=== PATIENT | female | born 1980 | race Caucasian/White ===

== ENCOUNTER 2022-07-19 08:41 | Inpatient (IN) ==
[2022-07-19] MEDS ORDERED: NovoLIN-R INSULIN PER UNIT CHARGE IV STA ×2 (09:09→11:17)
[2022-07-19] MEDS ORDERED: SODIUM CHLORIDE 0.9% 1000ML 2,000 ML IV SCH (09:15)
--- NOTE | 2022-07-19 09:49 | Emergency Department Note ---
Impression & Plan Hyperglycemia, JOSÉ LUIS (acute kidney injury), Acute dehydration, Acute hyponatremia ED Provider Note NAME: YAQUELIN CASTRO AGE: 42 SEX: F : 1980 ARRIVES VIA: Walk-In INFORMANT: [Patient] ED PROVIDER(S): [Roni Zuñiga MD] CHIEF COMPLAINT: Hyperglycemia HISTORY OF PRESENT ILLNESS: The patient is a 42-year-old female who states that in the last week, her blood sugars have been high. Today, they were 500. She has not officially been diagnosed with diabetes. She has noticed increased thirst and increased urination. She is up all night going to the bathroom. There has been no fever, no chills or cough or respiratory complaint. No vomiting or diarrhea, no urinary burning. She states that her family has a history of diabetes. REVIEW OF SYSTEMS: See HPI for pertinent positives and negatives. A total of ten systems were reviewed and were otherwise negative. PMHx/PSHx: See Below SOCIAL HISTORY: See Below. PHYSICAL EXAM: GENERAL: Patient is in no acute distress. HEENT: No acute trauma, normocephalic atraumatic, mucous membranes moist, no nasal congestion, no scleral icterus. NECK: No stridor, no adenopathy, no meningismus, trachea is midline. LUNGS: Clear to auscultation bilaterally, no wheeze, no rhonchi, breath sounds equal. HEART: Without murmurs gallops or rubs, regular rate and rhythm. ABDOMEN: Soft, nontender, bowel sounds positive, no peritonitis. EXTREMITIES: No cyanosis or edema, full range of motion of all the joints without pain or difficulty, no signs for acute trauma. NEUROLOGIC: Oriented x 3, no acute motor or sensory deficits, no focal weakness. SKIN: No rash, no jaundice, no diaphoresis. DIFFERENTIAL DIAGNOSIS: Infection, dehydration, UTI, COVID-19, metabolic abnormality, new onset diabete s, hypo/hyperglycemia, electrolyte disturbance, anemia, hypoxia, cardiac sources, as well as other pathologies. EMERGENCY DEPARTMENT COURSE/PROCEDURES: ECG: Indication was weakness. The ECG shows a normal sinus rhythm with a rate of 93. LVH is present. There is no ST elevation, no PVCs P the QTc is 450. Continuous Cardiac Monitoring: An order was placed for continuous cardiac monitoring. The monitor shows a rate of 117 with sinus tachycardia. MEDICAL DECISION MAKING: There is a mild leukocytosis, this could be consistent with infection or the stress of her presentation. Hemoglobin was high, likely consistent with dehydration. There was a normal platelet count. ABG did not show any true acidosis. Renal panel testing showed a sugar over 500. Her sodium was low. There was some acute kidney injury. No concerning liver enzyme elevation. TSH was elevated however, the T4 was normal. Of note, the patient does take thyroid medications. testing was negative. Urinalysis showed glucose and ketones, there was no true infection. COVID test returned negative. Chest x- ray did not show pneumonia. On exam, the patient was not toxic or febrile. The patient received 3 L of IV saline. She was given 10 units of IV insulin, a second dose of 8 units of IV insulin was administered. Her sugar is still in the 300s. The patient is dehydrated with some acute kidney injury. Her sodium is low. She has a high blood sugar that has been hard to control. She is technically a new onset diabetic. I do think the patient would benefit from a hospital stay. I spoke with the patient and case management, the on-call hospitalist was consulted. Past Med/Surg History Medical History Hypothyroid Social History Smoking Status: Current every day smoker Tobacco Type: E-cigarettes / Vaping Preferred Language: Kinyarwanda Feels Safe at Home: Yes Allergies Allergies Allergy/AdvReac Type Severity Reaction Status Date / Time No Known Allergies Allergy Unverified 07/19/22 08:52 Home Meds Home Medications Medication Instructions Recorded Confirmed buspirone 30 mg tablet 30 mg PO BID 07/19/22 07/19/22 levothyroxine 112 mcg tablet 112 mcg PO DAILY 07/19/22 07/19/22 spironolactone 100 mg tablet 100 mg PO BID 07/19/22 07/19/22 Results & Data (ED) Vital Signs Vital Signs - 24 hr 07/19/22 08:48 07/19/22 09:56 07/19/22 09:56 Temperature 36.5 C Temperature Source Temporal Artery Scan Pulse Rate 117 H Pulse Rate [Apical] 88 Pulse Rate from SpO2 Sensor Pulse Rhythm Regular Pulse Rhythm [Apical] Regular Pulse Strength Normal Respiratory Rate 18 18 Respiratory Effort / Characteristics Non-Labored Spontaneous Respiratory Depth Normal Normal Respiratory Pattern Regular Blood Pressure 152/90 H Blood Pressure [Left Arm] 159/94 H Blood Pressure Mean 110 Blood Pressure Mean [Left Arm] 115 Blood Pressure Position Sitting Blood Pressure Position [Left Arm] Pulse Oximetry 97 97 97 Oxygen Delivery Method Room Air Room Air Room Air Sepsis Recent Fever Within 48 Hours No Sepsis New/Unexplained Change in Mental Status No Sepsis Action Taken by Nursing No Action Required 07/19/22 10:53 07/19/22 09:05 07/19/22 09:10 Temperature Temperature Source Pulse Rate 103 H 94 H Pulse Rate [Apical] 87 Pulse Rate from SpO2 Sensor 100 H 94 H Pulse Rhythm Pulse Rhythm [Apical] Pulse Strength Respiratory Rate 18 18 13 Respiratory Effort / Characteristics Respiratory Depth Normal Respiratory Pattern Blood Pressure Blood Pressure [Left Arm] 126/104 H Blood Pressure Mean Blood Pressure Mean [Left Arm] 111 Blood Pressure Position Blood Pressure Position [Left Arm] Lying Pulse Oximetry 95 95 94 Oxygen Delivery Method Room Air Sepsis Recent Fever Within 48 Hours Sepsis New/Unexplained Change in Mental Status Sepsis Action Taken by Nursing 07/19/22 09:20 07/19/22 09:30 07/19/22 09:30 Temperature Temperature Source Pulse Rate 88 96 H Pulse Rate [Apical] Pulse Rate from SpO2 Sensor 91 H 95 H Pulse Rhythm Pulse Rhythm [Apical] Pulse Strength Respiratory Rate 16 16 Respiratory Effort / Characteristics Respiratory Depth Respiratory Pattern Blood Pressure 159/94 H Blood Pressure [Left Arm] Blood Pressure Mean 115 Blood Pressure Mean [Left Arm] Blood Pressure Position Blood Pressure Position [Left Arm] Pulse Oximetry 94 95 Oxygen Delivery Method Sepsis Recent Fever Within 48 Hours Sepsis New/Unexplained Change in Mental Status Sepsis Action Taken by Nursing 07/19/22 09:40 07/19/22 09:50 07/19/22 10:00 Temperature Temperature Source Pulse Rate 93 H 93 H Pulse Rate [Apical] Pulse Rate from SpO2 Sensor 92 H 89 Pulse Rhythm Pulse Rhythm [Apical] Pulse Strength Respiratory Rate 17 16 Respiratory Effort / Characteristics Respiratory Depth Respiratory Pattern Blood Pressure 153/99 H Blood Pressure [Left Arm] Blood Pressure Mean 117 Blood Pressure Mean [Left Arm] Blood Pressure Position Blood Pressure Position [Left Arm] Pulse Oximetry 95 95 Oxygen Delivery Method Sepsis Recent Fever Within 48 Hours Sepsis New/Unexplained Change in Mental Status Sepsis Action Taken by Nursing 07/19/22 10:00 07/19/22 10:10 07/19/22 10:20 Temperature Temperature Source Pulse Rate 82 84 89 Pulse Rate [Apical] Pulse Rate from SpO2 Sensor 84 83 88 Pulse Rhythm Pulse Rhythm [Apical] Pulse Strength Respiratory Rate 18 19 17 Respiratory Effort / Characteristics Respiratory Depth Respiratory Pattern Blood Pressure Blood Pressure [Left Arm] Blood Pressure Mean Blood Pressure Mean [Left Arm] Blood Pressure Position Blood Pressure Position [Left Arm] Pulse Oximetry 96 96 95 Oxygen Delivery Method Sepsis Recent Fever Within 48 Hours Sepsis New/Unexplained Change in Mental Status Sepsis Action Taken by Nursing 07/19/22 10:36 07/19/22 10:40 07/19/22 10:46 Temperature Temperature Source Pulse Rate 86 89 Pulse Rate [Apical] Pulse Rate from SpO2 Sensor 84 84 87 Pulse Rhythm Pulse Rhythm [Apical] Pulse Strength Respiratory Rate 15 15 Respiratory Effort / Characteristics Respiratory Depth Respiratory Pattern Blood Pressure Blood Pressure [Left Arm] Blood Pressure Mean Blood Pressure Mean [Left Arm] Blood Pressure Position Blood Pressure Position [Left Arm] Pulse Oximetry 95 94 94 Oxygen Delivery Method Sepsis Recent Fever Within 48 Hours Sepsis New/Unexplained Change in Mental Status Sepsis Action Taken by Nursing 07/19/22 10:46 07/19/22 10:50 07/19/22 11:00 Temperature Temperature Source Pulse Rate 85 Pulse Rate [Apical] Pulse Rate from SpO2 Sensor 84 Pulse Rhythm Pulse Rhythm [Apical] Pulse Strength Respiratory Rate 17 Respiratory Effort / Characteristics Respiratory Depth Respiratory Pattern Blood Pressure 126/104 H 143/92 H Blood Pressure [Left Arm] Blood Pressure Mean 111 109 Blood Pressure Mean [Left Arm] Blood Pressure Position Blood Pressure Position [Left Arm] Pulse Oximetry 94 Oxygen Delivery Method Sepsis Recent Fever Within 48 Hours Sepsis New/Unexplained Change in Mental Status Sepsis Action Taken by Nursing 07/19/22 11:00 07/19/22 11:10 07/19/22 11:20 Temperature Temperature Source Pulse Rate 83 95 H 91 H Pulse Rate [Apical] Pulse Rate from SpO2 Sensor 83 95 H Pulse Rhythm Pulse Rhythm [Apical] Pulse Strength Respiratory Rate 16 16 20 Respiratory Effort / Characteristics Respiratory Depth Respiratory Pattern Blood Pressure Blood Pressure [Left Arm] Blood Pressure Mean Blood Pressure Mean [Left Arm] Blood Pressure Position Blood Pressure Position [Left Arm] Pulse Oximetry 93 94 Oxygen Delivery Method Sepsis Recent Fever Within 48 Hours Sepsis New/Unexplained Change in Mental Status Sepsis Action Taken by Nursing 07/19/22 11:30 07/19/22 11:30 07/19/22 11:40 Temperature Temperature Source Pulse Rate 79 80 Pulse Rate [Apical] Pulse Rate from SpO2 Sensor Pulse Rhythm Pulse Rhythm [Apical] Pulse Strength Respiratory Rate 18 19 Respiratory Effort / Characteristics Respiratory Depth Respiratory Pattern Blood Pressure 163/93 H Blood Pressure [Left Arm] Blood Pressure Mean 116 Blood Pressure Mean [Left Arm] Blood Pressure Position Blood Pressure Position [Left Arm] Pulse Oximetry Oxygen Delivery Method Sepsis Recent Fever Within 48 Hours Sepsis New/Unexplained Change in Mental Status Sepsis Action Taken by Nursing 07/19/22 11:50 Temperature Temperature Source Pulse Rate 78 Pulse Rate [Apical] Pulse Rate from SpO2 Sensor Pulse Rhythm Pulse Rhythm [Apical] Pulse Strength Respiratory Rate 18 Respiratory Effort / Characteristics Respiratory Depth Respiratory Pattern Blood Pressure Blood Pressure [Left Arm] Blood Pressure Mean Blood Pressure Mean [Left Arm] Blood Pressure Position Blood Pressure Position [Left Arm] Pulse Oximetry 98 Oxygen Delivery Method Sepsis Recent Fever Within 48 Hours Sepsis New/Unexplained Change in Mental Status Sepsis Action Taken by [facility] Medications Current Medication List: was personally reviewed by me Laboratory Data Attestation: I reviewed the patient's lab results. Result diagrams: 07/19/22 09:02 07/19/22 14:58 Lab Results 07/19/22 07/19/22 07/19/22 Range/Units 08:59 09:00 09:02 WBC (4.8-10.8) K/ul RBC (3.93-5.22) M/uL Hgb (12.0-16.0) g/dl Hct (34.1-44.9) % MCV (80.0-100.0) fL MCH (25.0-34.0) pg MCHC (32.0-36.0) g/dL RDW Std Deviation (36.4-46.3) fL RDW Coeff of Daquan (11.5-14.5) % Plt Count (130-400) K/uL MPV (9.4-12.3) fL Immature Gran % (Auto) % Neut % (Auto) % Lymph % (Auto) % O'Brien % (Auto) % Eos % (Auto) % Baso % (Auto) % Neut # (Auto) (1.4-6.5) K/uL Lymph # (Auto) (1.2-3.4) K/uL O'Brien # (Auto) (0.24-0.82) K/uL Eos # (Auto) (0-0.50) K/uL Baso # (Auto) (0-0.2) K/uL Immature Gran # (Auto) (0.00-0.02) K/uL ABG pH (7.35-7.45) ABG pCO2 (35-46) mmHg ABG pO2 (80-95) mmHg ABG HCO3 (19-24) mmol/L ABG O2 Saturation (90-95) % ABG Base Excess (-9-1.8) mEq/L Alexis Test (Pos) Oxygen Given Sodium (136-145) mmol/L Potassium (3.5-5.1) mmol/L Chloride (98-107) mmol/L Carbon Dioxide (21-32) mmol/L Anion Gap (3-11) BUN (6-23) mg/dl Creatinine (0.6-1.2) mg/dl Est Cr Clr Drug Dosing ml/min Est GFR ( Amer) ml/min Est GFR (Non-Af Amer) ml/min BUN/Creatinine Ratio (10-20) Glucose (70-99(Fasting)) mg/dl POC Glucose 526 H* 526 H* (70-99) mg/dl Estimat Average Glucose 203 mg/dl Hemoglobin A1c 8.7 H (4.5-5.6) % Calcium (8.5-10.1) mg/dl Magnesium (1.7-2.4) mg/dl Total Bilirubin (0.2-1.0) mg/dl AST (13-39) U/L ALT (7-52) U/L Alkaline Phosphatase (34-104) U/L Total Protein (6.0-8.3) gm/dl Albumin (3.4-5.0) gm/dl Globulin (2.5-4.0) gm/dl Albumin/Globulin Ratio (0.9-2) TSH (0.300-4.500) uIu/ml Free T4 (0.61-1.60) ng/dl HCG, Qual (Negative) Urine Color Urine Appearance (Clear) Urine pH (4.5-7.5) Ur Specific [place] (1.000-1.030) Urine Protein (Negative) Urine Glucose (UA) (Negative) Urine Ketones (Negative) Urine Blood (Negative) Urine Nitrite (Negative) Urine Bilirubin (Negative) Urine Urobilinogen (Negative) Ur Leukocyte Esterase (Negative) Urine WBC (Auto) (0-5) /hpf Urine RBC (Auto) (0-4) /hpf U Hyaline Cast (Auto) (0-5) /lpf U Epithel Cells (Auto) (0-5) /lpf Urine Bacteria (Auto) (Negative) SARS-CoV-2, RNA, NAAT (NEGATIVE) 07/19/22 07/19/22 07/19/22 Range/Units 09:02 09:02 09:02 WBC 13.66 H (4.8-10.8) K/ul RBC 4.67 (3.93-5.22) M/uL Hgb 16.2 H (12.0-16.0) g/dl Hct 44.1 (34.1-44.9) % MCV 94.4 (80.0-100.0) fL MCH 34.7 H (25.0-34.0) pg MCHC 36.7 H (32.0-36.0) g/dL RDW Std Deviation 41.3 (36.4-46.3) fL RDW Coeff of Daquan 11.9 (11.5-14.5) % Plt Count 319 (130-400) K/uL MPV 10.6 (9.4-12.3) fL Immature Gran % (Auto) 0.8 % Neut % (Auto) 58.1 % Lymph % (Auto) 30.9 % O'Brien % (Auto) 6.9 % Eos % (Auto) 2.1 % Baso % (Auto) 1.2 % Neut # (Auto) 7.94 H (1.4-6.5) K/uL Lymph # (Auto) 4.22 H (1.2-3.4) K/uL O'Brien # (Auto) 0.94 H (0.24-0.82) K/uL Eos # (Auto) 0.29 (0-0.50) K/uL Baso # (Auto) 0.16 (0-0.2) K/uL Immature Gran # (Auto) 0.11 H (0.00-0.02) K/uL ABG pH (7.35-7.45) ABG pCO2 (35-46) mmHg ABG pO2 (80-95) mmHg ABG HCO3 (19-24) mmol/L ABG O2 Saturation (90-95) % ABG Base Excess (-9-1.8) mEq/L Alexis Test (Pos) Oxygen Given Sodium 129 L (136-145) mmol/L Potassium 4.4 (3.5-5.1) mmol/L Chloride 97 L (98-107) mmol/L Carbon Dioxide 18 L (21-32) mmol/L Anion Gap 14 H (3-11) BUN 31 H (6-23) mg/dl Creatinine 1.33 H (0.6-1.2) mg/dl Est Cr Clr Drug Dosing 73.6 ml/min Est GFR ( Amer) 57.0 ml/min Est GFR (Non-Af Amer) 49.2 ml/min BUN/Creatinine Ratio 23.3 H (10-20) Glucose 555 H* (70-99(Fasting)) mg/dl POC Glucose (70-99) mg/dl Estimat Average Glucose mg/dl Hemoglobin A1c (4.5-5.6) % Calcium 9.9 (8.5-10.1) mg/dl Magnesium 2.3 (1.7-2.4) mg/dl Total Bilirubin 0.0 L (0.2-1.0) mg/dl AST 39 (13-39) U/L ALT 53 H (7-52) U/L Alkaline Phosphatase 91 (34-104) U/L Total Protein 8.4 H (6.0-8.3) gm/dl Albumin 4.8 (3.4-5.0) gm/dl Globulin 3.6 (2.5-4.0) gm/dl Albumin/Globulin Ratio 1.3 (0.9-2) TSH (0.300-4.500) uIu/ml Free T4 (0.61-1.60) ng/dl HCG, Qual Negative (Negative) Urine Color Urine Appearance (Clear) Urine pH (4.5-7.5) Ur Specific [place] (1.000-1.030) Urine Protein (Negative) Urine Glucose (UA) (Negative) Urine Ketones (Negative) Urine Blood (Negative) Urine Nitrite (Negative) Urine Bilirubin (Negative) Urine Urobilinogen (Negative) Ur Leukocyte Esterase (Negative) Urine WBC (Auto) (0-5) /hpf Urine RBC (Auto) (0-4) /hpf U Hyaline Cast (Auto) (0-5) /lpf U Epithel Cells (Auto) (0-5) /lpf Urine Bacteria (Auto) (Negative) SARS-CoV-2, RNA, NAAT (NEGATIVE) 07/19/22 07/19/22 07/19/22 Range/Units 09:02 09:34 09:37 WBC (4.8-10.8) K/ul RBC (3.93-5.22) M/uL Hgb (12.0-16.0) g/dl Hct (34.1-44.9) % MCV (80.0-100.0) fL MCH (25.0-34.0) pg MCHC (32.0-36.0) g/dL RDW Std Deviation (36.4-46.3) fL RDW Coeff of Daquan (11.5-14.5) % Plt Count (130-400) K/uL MPV (9.4-12.3) fL Immature Gran % (Auto) % Neut % (Auto) % Lymph % (Auto) % O'Brien % (Auto) % Eos % (Auto) % Baso % (Auto) % Neut # (Auto) (1.4-6.5) K/uL Lymph # (Auto) (1.2-3.4) K/uL O'Brien # (Auto) (0.24-0.82) K/uL Eos # (Auto) (0-0.50) K/uL Baso # (Auto) (0-0.2) K/uL Immature Gran # (Auto) (0.00-0.02) K/uL ABG pH 7.37 (7.35-7.45) ABG pCO2 32 L (35-46) mmHg ABG pO2 98 H (80-95) mmHg ABG HCO3 19 (19-24) mmol/L ABG O2 Saturation 98.1 H (90-95) % ABG Base Excess -5.8 (-9-1.8) mEq/L Alexis Test Pos (Pos) Oxygen Given Room Air Sodium (136-145) mmol/L Potassium (3.5-5.1) mmol/L Chloride (98-107) mmol/L Carbon Dioxide (21-32) mmol/L Anion Gap (3-11) BUN (6-23) mg/dl Creatinine (0.6-1.2) mg/dl Est Cr Clr Drug Dosing ml/min Est GFR ( Amer) ml/min Est GFR (Non-Af Amer) ml/min BUN/Creatinine Ratio (10-20) Glucose (70-99(Fasting)) mg/dl POC Glucose (70-99) mg/dl Estimat Average Glucose mg/dl Hemoglobin A1c (4.5-5.6) % Calcium (8.5-10.1) mg/dl Magnesium (1.7-2.4) mg/dl Total Bilirubin (0.2-1.0) mg/dl AST (13-39) U/L ALT (7-52) U/L Alkaline Phosphatase (34-104) U/L Total Protein (6.0-8.3) gm/dl Albumin (3.4-5.0) gm/dl Globulin (2.5-4.0) gm/dl Albumin/Globulin Ratio (0.9-2) TSH 16.050 H (0.300-4.500) uIu/ml Free T4 0.77 (0.61-1.60) ng/dl HCG, Qual (Negative) Urine Color Urine Appearance (Clear) Urine pH (4.5-7.5) Ur Specific [place] (1.000-1.030) Urine Protein (Negative) Urine Glucose (UA) (Negative) Urine Ketones (Negative) Urine Blood (Negative) Urine Nitrite (Negative) Urine Bilirubin (Negative) Urine Urobilinogen (Negative) Ur Leukocyte Esterase (Negative) Urine WBC (Auto) (0-5) /hpf Urine RBC (Auto) (0-4) /hpf U Hyaline Cast (Auto) (0-5) /lpf U Epithel Cells (Auto) (0-5) /lpf Urine Bacteria (Auto) (Negative) SARS-CoV-2, RNA, NAAT NEGATIVE (NEGATIVE) 07/19/22 07/19/22 07/19/22 Range/Units 10:26 10:39 11:15 WBC (4.8-10.8) K/ul RBC (3.93-5.22) M/uL Hgb (12.0-16.0) g/dl Hct (34.1-44.9) % MCV (80.0-100.0) fL MCH (25.0-34.0) pg MCHC (32.0-36.0) g/dL RDW Std Deviation (36.4-46.3) fL RDW Coeff of Daquan (11.5-14.5) % Plt Count (130-400) K/uL MPV (9.4-12.3) fL Immature Gran % (Auto) % Neut % (Auto) % Lymph % (Auto) % O'Brien % (Auto) % Eos % (Auto) % Baso % (Auto) % Neut # (Auto) (1.4-6.5) K/uL Lymph # (Auto) (1.2-3.4) K/uL O'Brien # (Auto) (0.24-0.82) K/uL Eos # (Auto) (0-0.50) K/uL Baso # (Auto) (0-0.2) K/uL Immature Gran # (Auto) (0.00-0.02) K/uL ABG pH (7.35-7.45) ABG pCO2 (35-46) mmHg ABG pO2 (80-95) mmHg ABG HCO3 (19-24) mmol/L ABG O2 Saturation (90-95) % ABG Base Excess (-9-1.8) mEq/L Alexis Test (Pos) Oxygen Given Sodium (136-145) mmol/L Potassium (3.5-5.1) mmol/L Chloride (98-107) mmol/L Carbon Dioxide (21-32) mmol/L Anion Gap (3-11) BUN (6-23) mg/dl Creatinine (0.6-1.2) mg/dl Est Cr Clr Drug Dosing ml/min Est GFR ( Amer) ml/min Est GFR (Non-Af Amer) ml/min BUN/Creatinine Ratio (10-20) Glucose (70-99(Fasting)) mg/dl POC Glucose 419 H* 388 H* (70-99) mg/dl Estimat Average Glucose mg/dl Hemoglobin A1c (4.5-5.6) % Calcium (8.5-10.1) mg/dl Magnesium (1.7-2.4) mg/dl Total Bilirubin (0.2-1.0) mg/dl AST (13-39) U/L ALT (7-52) U/L Alkaline Phosphatase (34-104) U/L Total Protein (6.0-8.3) gm/dl Albumin (3.4-5.0) gm/dl Globulin (2.5-4.0) gm/dl Albumin/Globulin Ratio (0.9-2) TSH (0.300-4.500) uIu/ml Free T4 (0.61-1.60) ng/dl HCG, Qual (Negative) Urine Color Yellow Urine Appearance Clear (Clear) Urine pH 5.0 (4.5-7.5) Ur Specific [place] 1.044 H (1.000-1.030) Urine Protein Negative (Negative) Urine Glucose (UA) 3+ H (Negative) Urine Ketones 2+ H (Negative) Urine Blood Trace H (Negative) Urine Nitrite Negative (Negative) Urine Bilirubin Negative (Negative) Urine Urobilinogen Negative (Negative) Ur Leukocyte Esterase Negative (Negative) Urine WBC (Auto) 10-30 H (0-5) /hpf Urine RBC (Auto) 0-4 (0-4) /hpf U Hyaline Cast (Auto) 1-5 (0-5) /lpf U Epithel Cells (Auto) >30 H (0-5) /lpf Urine Bacteria (Auto) Negative (Negative) SARS-CoV-2, RNA, NAAT (NEGATIVE) Administered Medications Insulin Human Regular 250 (units/ Sodium Chloride) 250 mls @ 8 mls/hr IV .Q24H [facility]; Protocol Stop: 08/18/22 11:59 Last Titration: 07/19/22 16:05 Dose: 8 units/hr, 8 mls/hr Documented By: [id number] Co-signed By: ASHLEY Titration: 07/19/22 15:02 Dose: 10 units/hr, 10 mls/hr Documented By: TIERA Co-signed By: HS Admin: 07/19/22 13:11 Dose: 10 units/hr, 10 mls/hr Documented By: TIERA Co-signed By: JUAN MANUEL Insulin Aspart (Insulin Aspart Per Unit) 0 units SC ACHS [facility] Stop: 08/18/22 12:29 Last Admin: 07/19/22 13:54 Dose: Not Given Documented By: TIERA Co-signed By: OAM Discontinued Medications Sodium Chloride (Nss 1000ml) 2,000 mls @ 999 mls/hr IV .Q2H1M [facility] Stop: 07/19/22 11:15 Last Infusion: 07/19/22 11:19 Dose: 0 mls/hr Documented By: Admin: 07/19/22 09:21 Dose: 999 mls/hr Documented By: ELEAZAR Sodium Chloride (Nss 1000ml) 1,000 mls @ 999 mls/hr IV .Q1H1M [facility] Stop: 07/19/22 12:17 Last Infusion: 07/19/22 12:33 Dose: 0 mls/hr Documented By: Admin: 07/19/22 11:32 Dose: 999 mls/hr Documented By: TIERA Potassium Chloride 40 meq/ (Sodium Chloride) 1,020 mls @ 125 mls/hr IV .Q8H10M [facility] Stop: 08/18/22 12:14 Last Admin: 07/19/22 13:12 Dose: 125 mls/hr Documented By: TIERA Insulin Human Regular (Novolin-R Insulin Per Unit Charge) 10 units IV NOW STA Stop: 07/19/22 09:10 Last Admin: 07/19/22 09:21 Dose: 10 units Documented By: ELEAZAR Co-signed By: ANTHONY Insulin Human Regular (Novolin-R Insulin Per Unit Charge) 8 units IV NOW STA Stop: 07/19/22 11:18 Last Admin: 07/19/22 11:32 Dose: 8 units Documented By: TIERA Co-signed By: JUAN MANUEL Imaging Data Radiologist's Impression: Chest X-Ray 07/19/22 09:10 SINGLE VIEW CHEST CLINICAL HISTORY: Generalized weakness. FINDINGS: An AP, portable, upright chest radiograph is obtained. No prior studies are available for comparison at the time of dictation. The cardiomediastinal silhouette is unremarkable. There is mild elevation of the right hemidiaphragm. The lungs and pleural spaces are clear. No pneumothorax is seen. The bony thorax is grossly intact. IMPRESSION: No active disease in the chest. ACT 112: Negative or not required by law. Electronically signed by: Roni Serna M.D. 07/19/2022 10:14 AM Discharge Plan Visit Data Chief Complaint: Hyperglycemia Stated Complaint: HIGH SUGAR, DRY MOUTH ED Provider: Roni Zuñiga Discharge Problem: Hyperglycemia, JOSÉ LUIS (acute kidney injury), Acute dehydration, Acute hyponatremia Patient Disposition: Admitted As Inpatient Condition: Fair Discharge Instructions Interventions: ED Discharge Assessment Last Done: 07/19/22 15:40
[2022-07-19 09:57] LABS: Pregnancy Test, Serum Negative (Negative)
[2022-07-19 09:58] LABS: Base Excess ABG -5.8 mEq/L (-9-1.8); HCO3 ABG 19 mmol/L (19-24); Oxygen Saturation ABG 98.1 % (90-95); PCO2 ABG 32 mmHg (35-46); PO2 ABG 98 mmHg (80-95); pH ABG 7.37 (7.35-7.45)
[2022-07-19 09:59] LABS: Thyroid Stimulating Hormone 16.05 uIu/ml (0.300-4.500)
[2022-07-19 10:05] LABS: Allen Test Pos (Pos)
[2022-07-19 10:05] LABS: Estimated Average Glucose 203 mg/dl; Hemoglobin A1C 8.7 % (4.5-5.6)
--- NOTE | 2022-07-19 10:16 | XRay Report ---
SINGLE VIEW CHEST CLINICAL HISTORY: Generalized weakness. FINDINGS: An AP, portable, upright chest radiograph is obtained. No prior studies are available for c omparison at the time of dictation. The cardiomediastinal silhouette is unremarkable. There is mild e levation of the right hemidiaphragm. The lungs and pleural spaces are clear. No pneumothorax is seen. The bony thorax is grossly intact. IMPRESSION: No active disease in the chest. ACT 112: Negative or not required by law. Electronically signed by: Roni Serna M.D. 07/19/2022 10:14 AM
[2022-07-19 10:21] LABS: Albumin Globulin Ratio 1.3 (0.9-2); Albumin Level 4.8 gm/dl (3.4-5.0); BUN Creatinine Ratio 23.3 (10-20); Calcium 9.9 mg/dl (8.5-10.1); Creatinine Clr Calc Pharmacy 73.6 ml/min; Est GFR (Non-African American) 49.2 ml/min; Globulin 3.6 gm/dl (2.5-4.0); Magnesium 2.3 mg/dl (1.7-2.4); Potassium 4.4 mmol/L (3.5-5.1); Total Protein 8.4 gm/dl (6.0-8.3)
[2022-07-19 10:23] LABS: Basophils # (auto) 0.16 K/uL (0-0.2); Basophils % (auto) 1.2 %; Eosinophils # (auto) 0.29 K/uL (0-0.50); Eosinophils % (auto) 2.1 %; Hematocrit (blood only) 44.1 % (34.1-44.9); Hemoglobin 16.2 g/dl (12.0-16.0); Immature Granulocytes # (auto) 0.11 K/uL (0.00-0.02); Immature Granulocytes % (auto) 0.8 %; Lymphocytes # (auto) 4.22 K/uL (1.2-3.4); Lymphocytes % (auto) 30.9 %; Mean Corpuscular Hemoglobin 34.7 pg (25.0-34.0); Mean Corpuscular Hgb Conc 36.7 g/dL (32.0-36.0); Mean Corpuscular Volume 94.4 fL (80.0-100.0); Mean Platelet Volume 10.6 fL (9.4-12.3); Monocytes # (auto) 0.94 K/uL (0.24-0.82); Monocytes % (auto) 6.9 %; Neutrophils # (auto) 7.94 K/uL (1.4-6.5); Neutrophils % (auto) 58.1 %; Platelet Count 319 K/uL (130-400); RDW Coefficient of Variation 11.9 % (11.5-14.5); RDW Standard Deviation 41.3 fL (36.4-46.3); Red Blood Count 4.67 M/uL (3.93-5.22); White Blood Count 13.66 K/ul (4.8-10.8)
[2022-07-19 10:32] LABS: T4 Free Thyroxine 0.77 ng/dl (0.61-1.60)
[2022-07-19 10:57] LABS: Appearance Urine Clear (Clear); Bacteria Urine Automated Negative (Negative); Bilirubin Urine Negative (Negative); Blood Urine Trace (Negative); Color Urine Yellow; Epithelial Cell Urine Auto >30 /lpf (0-5); Glucose Urine UA 3+ (Negative); Ketones Urine 2+ (Negative); Leukocyte Esterase Urine Negative (Negative); Nitrite Urine Negative (Negative); Protein Urine Negative (Negative); RBC Urine Automated 0-4 /hpf (0-4); Specific Gravity Urine 1.044 (1.000-1.030); Urobilinogen Urine Negative (Negative)
[2022-07-19] MEDS ORDERED: SODIUM CHLORIDE 0.9% 1000ML 1,000 ML IV ONE (11:17)
[2022-07-19] MEDS ORDERED: PHARMACY GLYCEMIC MGMT CONSULT PRN (11:52)
[2022-07-19] MEDS ORDERED: ACETAMINOPHEN 325 MG TAB PO PRN (11:52)
[2022-07-19] MEDS ORDERED: STAT IV Infusion **Titration per Protocol STA (11:52)
[2022-07-19] MEDS ORDERED: DKA GOAL RANGE 150-250 mg/dl ONE (11:52)
[2022-07-19] MEDS ORDERED: NORMOSOL-R 1,000 ML IV SCH (12:00)
[2022-07-19] MEDS ORDERED: PENDING D5 1/2NS+40mEq KCL IVF SCH (12:00)
[2022-07-19] MEDS ORDERED: INSULIN REGULAR 250 UNITS in SODIUM CHLORIDE 0.9% 247.5 ML IV SCH (12:00)
[2022-07-19] MEDS ORDERED: PENDING 1/2NSS+40mEq KCL IVF SCH (12:00)
[2022-07-19] MEDS ORDERED: POTASSIUM CHLORIDE 40 MEQ in SODIUM CHLORIDE 0.45 % 1,000 ML IV SCH (12:15)
--- NOTE | 2022-07-19 12:22 | Electrocardiogram Report ---
Test Reason : Blood Pressure : / mmHG Vent. Rate : 093 BPM Atrial Rate : 093 BPM P-R Int : 154 ms QRS Dur : 086 ms QT Int : 362 ms P-R-T Axes : 044 -19 021 degrees QTc Int : 450 ms Normal sinus rhythm Moderate voltage criteria for LVH, may be normal variant Borderline ECG No previous ECGs available Confirmed by Uriel Hawkins ([id number]) on 07/19/2022 12:22:29 PM Referred By: Confirmed By:Uriel Hawkins
[2022-07-19] MEDS ORDERED: DEXTROSE 50% 50 ML SYRINGE IV PRN (12:30)
[2022-07-19] MEDS ORDERED: CARBOHYDRATES FOR HYPOGLYCEMIA PO PRN (12:30)
[2022-07-19] MEDS ORDERED: GLUCAGON FOR INJ 1 MG VIAL IM PRN (12:30)
[2022-07-19] MEDS ORDERED: GLUCOSE 40% GEL 15 GM TUBE PO PRN (12:30)
[2022-07-19] MEDS ORDERED: GLUCOSE 10 TAB/TUBE PO PRN (12:30)
--- NOTE | 2022-07-19 13:22 | History & Physical Report ---
Date of Service July 19, 2022 Assessment & Plan (1) Diabetic keto-acidosis: Plan: 42 yo female with newly diagnosed diabetes will place on IV insulin DKA order set placed. once anion gap closes, will bridge consulted glycemic control (2) Acute dehydration: Plan: continue IVF as above. (3) Acute hyponatremia: Plan: will monitor sodium. marko from increase free water ingestion. anticipate this will improve as her DKA normalizes (4) Hypothyroid: Plan: will resume home meds. Free t4 is in range. TSH is elevated, will hold off increasing levothyroxine. (5) PCOS (polycystic ovarian syndrome): Plan: will resume home meds (6) Obesity: Plan: given recent diabetes diagnosis, will recommend lifestyle modifications History of Present Illness Chief Complaint: dry mouth, thirst Primary Care Provider: Kanwal Cintron 42 yo female with past medical history of PCOS, hypothyroidism, and anxiety. Patient also reports having recurrent UTI in the past. Patient saes that over the past month, she has noticed an increase amount of urination. Patient states that over the past week, she has had polyuriia, polydipsia (she hates drinking water), but reports that she has allen drinking plenty of water. Allergies Allergy/AdvReac Type Severity Reaction Status Date / Time No Known Allergies Allergy Unverified 07/19/22 08:52 Home Medications Medication Instructions Recorded Confirmed Type buspirone 30 mg tablet 30 mg PO BID 07/19/22 07/19/22 History levothyroxine 112 mcg tablet 112 mcg PO DAILY 07/19/22 07/19/22 History spironolactone 100 mg tablet 100 mg PO BID 07/19/22 07/19/22 History Past Med/Surg History Medical History Hypothyroid Social History Smoking Status: Current every day smoker Tobacco Type: E-cigarettes / Vaping Second Hand Exposure: No; Do You Dip or Chew Tobacco: No; Tobacco Cessation Education Requested by Patient: No Hx Alcohol Use: No Hx Substance Use: No Preferred Language: Nepali Communication Ability: Effective 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 Beliefs That Will Affect Care: None Current Living Situation: Family Other Information That Helps Us Care for You: No Feels Safe at Home: Yes Safety Concerns: Feels Safe At This Time Assistive Devices: Glasses Review of Systems Constitutional: + body aches; no fever Eyes: no blind spots Ear, Nose, Mouth, Throat: + dry mouth; no ear pain Respiratory: no cough Cardiovascular: no chest pain Gastrointestinal: no abdominal pain Genitourinary: + urinary frequency; no dysuria Musculoskeletal: no back pain Integumentary: no acne Neurologic: no gait abnormality Psychiatric: no behavioral changes Endocrine: + fatigue Hematologic / Lymphatic: no easy bleeding Allergy / Immunological: no GI upset with certain foods Physical Exam Constitutional: WD/WN, vitals as above Eyes: PERRL, conjunctivae normal, anicteric sclerae ENMT: external ear and nose normal, oropharynx normal Neck: trachea midline, no thyromegaly Respiratory: normal respiratory effort, lungs clear to auscultation Cardiovascular: RRR, no murmur, no edema Gastrointestinal (Abdomen): normal bowel sounds, soft, nontender, no hepatosplenomegaly Musculoskeletal: no cyanosis or clubbing, extremities motor strength 5/5 Skin: no rashes, warm and dry Neurologic: PERRL, EOMI, accommodation nl, no face palsy, no dysarthria Psychiatric: A+Ox3, euthymic affect Lymphatic: no cervical or axillary lymphadenopathy Results & Data Results & Data ([facility]) Vital Signs (Past 12 Hours) Vital Signs Temp Pulse Pulse Resp BP BP Pulse Ox 07/19/22 11:00 83 16 93 07/19/22 11:00 143/92 H 07/19/22 10:50 85 17 94 07/19/22 10:46 126/104 H 07/19/22 10:46 89 15 94 07/19/22 10:40 86 15 94 07/19/22 10:36 95 07/19/22 10:20 89 17 95 07/19/22 10:10 84 19 96 07/19/22 10:00 82 18 96 07/19/22 10:00 153/99 H 07/19/22 09:50 93 H 16 95 07/19/22 09:40 93 H 17 95 07/19/22 09:30 96 H 16 95 07/19/22 09:30 159/94 H 07/19/22 09:20 88 16 94 07/19/22 09:10 94 H 13 94 07/19/22 09:05 103 H 18 95 07/19/22 10:53 87 18 126/104 H 95 07/19/22 09:56 88 18 159/94 H 97 07/19/22 09:56 97 07/19/22 08:48 36.5 C 117 H 18 152/90 H 97 O2 Del Method 07/19/22 11:00 07/19/22 11:00 07/19/22 10:50 07/19/22 10:46 07/19/22 10:46 07/19/22 10:40 07/19/22 10:36 07/19/22 10:20 07/19/22 10:10 07/19/22 10:00 07/19/22 10:00 07/19/22 09:50 07/19/22 09:40 07/19/22 09:30 07/19/22 09:30 07/19/22 09:20 07/19/22 09:10 07/19/22 09:05 07/19/22 10:53 Room Air 07/19/22 09:56 Room Air 07/19/22 09:56 Room Air 07/19/22 08:48 Room Air PG Care Time/CCT Total # of Minutes Spent Total Time Spent with Patient: Total time spent is greater than 50% in coordination of care (as documented) at patient's floor/unit and/or counseling patient: Coding Level of Care Code 42069 Initial Inpt Care Lvl 3 Diagnoses Diabetic keto-acidosis E11.10 Acute dehydration E86.0 Acute hyponatremia E87.1 Hypothyroid E03.9 PCOS (polycystic ovarian syndrome) E28.2 Obesity E66.9
[2022-07-19 13:42] LABS: BUN Creatinine Ratio 27.9 (10-20); Blood Urea Nitrogen 24 mg/dl (6-23); Calcium 8.3 mg/dl (8.5-10.1); Carbon Dioxide 19 mmol/L (21-32); Chloride 105 mmol/L (98-107); Creatinine Clr Calc Pharmacy 113.8 ml/min; Est GFR (African American) 96.6 ml/min; Est GFR (Non-African American) 83.3 ml/min; Glucose 335 mg/dl (70-99(Fasting)); Phosphorus 2.6 mg/dl (2.5-4.9)
[2022-07-19] MEDS: INSULIN ASPART PER UNIT SC SCH ×4 (13:54→23:22)
--- NOTE | 2022-07-19 14:01 | Pharmacy Report ---
Pharmacy Glycemic Short Note 2 - Date of Service July 19, 2022 - Glycemic Short BSG Results (Last 24 hours): 07/19/22 07/19/22 07/19/22 08:59 09:00 09:02 Glucose 555 H* POC Glucose 526 H* 526 H* 07/19/22 07/19/22 07/19/22 10:26 11:15 12:43 Glucose 335 H* POC Glucose 419 H* 388 H* 07/19/22 12:47 Glucose POC Glucose 358 H* Laboratory Tests 07/19/22 07/19/22 09:02 09:02 Carbon Dioxide 18 L Anion Gap 14 H Hemoglobin A1c 8.7 H OUTPATIENT ANTIDIABETIC REGIMEN: * None * A1c 8.7% 07/19/22 ASSESSMENT: * 42 yo female, PMH of PCOS, hypothyroidism, anxiety, recurrent UTI in the past, polyuria, polydipsia over past week, mild DKA, new DM dx, given 2 IV insulin boluses in ED (10 units x1, 8 units x 1), blood sugars trending down, started on insulin infusion protocol. * NPO, latest labs anion gap not performed d/t hemolysis, prior anion gap 14, CO2 18. * Patient on insulin drip + 1/2NS+ 40K+. PLAN FOR INPATIENT GLYCEMIC CONTROL: * IV insulin infusion - currently running at 10 units/hr * Basal insulin * Lantus 25 units, begin once anion gap has closed * Bolus insulin * NovoLog per scale ACHS per insulin drip protocol when diet initiated
[2022-07-19 15:41] LABS: Magnesium 1.7 mg/dl (1.7-2.4); Potassium 3.8 mmol/L (3.5-5.1)
[2022-07-19] MEDS ORDERED: POTASSIUM CHLORIDE 40 MEQ in D5W AND 1/2NSS 1,000 ML IV SCH (16:00)
[2022-07-19 17:05] LABS: Calcium 8.9 mg/dl (8.5-10.1); Creatinine Clr Calc Pharmacy 110.9 ml/min; Est GFR (African American) 93.9 ml/min; Magnesium 1.8 mg/dl (1.7-2.4); Phosphorus 2.4 mg/dl (2.5-4.9); Potassium 3.8 mmol/L (3.5-5.1)
[2022-07-19] MEDS ORDERED: LANTUS PER UNIT CHARGE SQ ONE (18:15)
[2022-07-19 21:03] LABS: BUN Creatinine Ratio 18.2 (10-20); Calcium 8.8 mg/dl (8.5-10.1); Creatinine Clr Calc Pharmacy 88.7 ml/min; Est GFR (African American) 71.7 ml/min; Est GFR (Non-African American) 61.9 ml/min; Magnesium 1.8 mg/dl (1.7-2.4); Phosphorus 2.5 mg/dl (2.5-4.9); Potassium 3.9 mmol/L (3.5-5.1)
[2022-07-19] MEDS: busPIRone 15 MG TAB PO SCH (21:28)
[2022-07-19] MEDS: SPIRONOLACTONE 100 MG TAB PO SCH (21:29)
[2022-07-19 23:47] LABS: BUN Creatinine Ratio 18.7 (10-20); Calcium 8.7 mg/dl (8.5-10.1); Creatinine Clr Calc Pharmacy 91.2 ml/min; Est GFR (African American) 74.2 ml/min; Potassium 3.8 mmol/L (3.5-5.1)
[2022-07-20 03:47] LABS: BUN Creatinine Ratio 17.8 (10-20); Calcium 8.9 mg/dl (8.5-10.1); Creatinine Clr Calc Pharmacy 96.6 ml/min; Est GFR (African American) 79.5 ml/min; Est GFR (Non-African American) 68.6 ml/min; Potassium 4.1 mmol/L (3.5-5.1)
[2022-07-20] MEDS: INSULIN ASPART PER UNIT SC SCH ×6 (04:18→21:16)
[2022-07-20 06:32] LABS: Hematocrit (blood only) 40.8 % (34.1-44.9); Hemoglobin 14.2 g/dl (12.0-16.0); Mean Corpuscular Hgb Conc 34.8 g/dL (32.0-36.0); Mean Corpuscular Volume 94.9 fL (80.0-100.0); Mean Platelet Volume 9.9 fL (9.4-12.3); Platelet Count 243 K/uL (130-400); RDW Coefficient of Variation 12.1 % (11.5-14.5); RDW Standard Deviation 42.2 fL (36.4-46.3); White Blood Count 10.37 K/ul (4.8-10.8)
[2022-07-20 06:58] LABS: BUN Creatinine Ratio 16.3 (10-20); Calcium 8.5 mg/dl (8.5-10.1); Creatinine Clr Calc Pharmacy 99.6 ml/min; Est GFR (African American) 82.5 ml/min; Est GFR (Non-African American) 71.1 ml/min; Potassium 4.1 mmol/L (3.5-5.1)
[2022-07-20 07:01] LABS: Chol HDL Ratio 5.1 (0-5)
[2022-07-20 07:40] LABS: Estimated Average Glucose 209 mg/dl; Hemoglobin A1C 8.9 % (4.5-5.6)
[2022-07-20] MEDS ORDERED: LANTUS PER UNIT CHARGE SQ ONE (08:30)
[2022-07-20] MEDS ORDERED: LANTUS PER UNIT CHARGE SQ SCH ×2 (09:00→21:00)
[2022-07-20] MEDS ORDERED: LEVOTHYROXINE SODIUM 112 MCG TABLET PO SCH (09:00)
[2022-07-20] MEDS: busPIRone 15 MG TAB PO SCH ×2 (09:24→21:07)
[2022-07-20] MEDS: SPIRONOLACTONE 100 MG TAB PO SCH ×2 (09:24→21:07)
[2022-07-20] MEDS: LEVOTHYROXINE SODIUM 125 MCG TABLET PO SCH (09:24)
--- NOTE | 2022-07-20 12:13 | Hospitalist Progress Note ---
Date of Service July 20, 2022 Assessment & Plan (1) Diabetic keto-acidosis: Plan: Now resolved. She appears to have insulin-dependent type 2 diabetes at this time. She states diabetes does run in her family. informatics educator has been consulted and she has been started on Lantus twice daily. Dosage will be adjusted as needed but she will be discharged on insulin hopefully tomorrow, July 21. (2) Acute dehydration: Plan: Resolved with IV fluid administration and glucose control (3) Acute hyponatremia: Plan: Due to hyperglycemia. Now resolved (4) Hypothyroid: Plan: Continue current thyroid replacement. TSH is elevated and dosage has been in creased. Free t4 is in range. (5) PCOS (polycystic ovarian syndrome): Plan: Continue home meds (6) Obesity: Plan: given recent diabetes diagnosis, would recommend lifestyle modifications and weight loss (7) JOSÉ LUIS (acute kidney injury): Plan: Mild on admission. Resolved with IV fluids and glucose control Plan Anticipate eventual discharge to home, possibly tomorrow, July 21 Admission and Anticipated Discharge Date Admission Date: July 19, 2022 Subjective Alert and oriented. No acute distress. The patient was unaware she has diabetes. She will postpone her optometry appointment until her glucose normalizes and has stayed normal for at least a month. Diabetic teaching is underway. DKA has now resolved and she has been started on Lantus twice daily which she will continue at home. Mild acute kidney injury present on admission has resolved with creatinine down to 0.9 at this time. Review of Systems Review of Systems: Constitutional-no fever or chills ENT-no blurred vision, no double vision, no epistaxis, no sore throat Respiratory-no cough, no wheezing, no shortness of breath Cardiac-no palpitations, no chest pain, no syncope GI-nausea has resolved. No vomiting, diarrhea, melena, hematochezia -no urinary retention, no urinary incontinence, no dysuria, no hematuria Musculoskeletal-no joint pain, no muscle tenderness Skin-no bruising, no rashes, no pruritus Neuro-no isolated weakness, no paresthesia, no weakness Psych-no depression, no anxiety Physical Exam Physical Exam: General-alert and oriented x3, no fevers, no chills. Morbidly obese HEENT-head atraumatic and normocephalic, pupils equal and reactive to light, extraocular muscles intact Neck-no lymphadenopathy or thyromegaly, trachea midline Chest-clear to auscultation percussion. No rales wheezing or rhonchi Cardiac-regular rate and rhythm, normal S1 and S2, no murmurs Abdomen-normal bowel sounds, nontender, no hepatosplenomegaly Extremities-no cyanosis, clubbing, or edema Neuro-cranial nerves II through XII intact, motor and sensory function within normal limits, strength symmetrical , no focal deficits Psych-normal affect, normal mood Results & Data Results & Data ([facility]) Vital Signs (Past 12 Hours) Vital Signs Temp Pulse Resp BP Pulse Ox O2 Del Method 07/20/22 07:35 37.0 C 62 14 127/81 97 Room Air Laboratory Results 07/20/22 06:08 07/20/22 06:08 PG Care Time/CCT Total # of Minutes Spent Total Time Spent with Patient: Total time spent is greater than 50% in coordination of care (as documented) at patient's floor/unit and/or counseling patient: Coding Level of Care Code 25440 Subseq Hosp Care Lvl 3 Diagnoses Diabetic keto-acidosis E11.10 Acute dehydration E86.0 Acute hyponatremia E87.1 Hypothyroid E03.9 PCOS (polycystic ovarian syndrome) E28.2 Obesity E66.9 JOSÉ LUIS (acute kidney injury) N17.9
[2022-07-20] MEDS ORDERED: INSULIN ASPART PER UNIT SC STA (12:25)
[2022-07-20] MEDS ORDERED: MELATONIN 3 MG TAB PO PRN (20:27)
[2022-07-21 07:48] VITALS: TEMP 97.9; O2SAT 96
[2022-07-21] MEDS ORDERED: ONDANSETRON INJ 2 MG/ML 2 ML VIAL IV PRN (08:37)
[2022-07-21] MEDS ORDERED: LANTUS PER UNIT CHARGE SQ SCH (09:00)
[2022-07-21] MEDS: busPIRone 15 MG TAB PO SCH (09:54)
[2022-07-21] MEDS: SPIRONOLACTONE 100 MG TAB PO SCH (09:54)
[2022-07-21] MEDS: INSULIN ASPART PER UNIT SC SCH (09:59)
[2022-07-21] MEDS: LEVOTHYROXINE SODIUM 125 MCG TABLET PO SCH (10:06)
--- NOTE | 2022-07-21 11:33 | Discharge Summary ---
Date of Service July 21, 2022 Admission HPI Per Admitting Provider 42 yo female with past medical history of PCOS, hypothyroidism, and anxiety. Patient also reports having recurrent UTI in the past. Patient saes that over the past month, she has noticed an increase amount of urination. Patient states that over the past week, she has had polyuriia, polydipsia (she hates drinking water), but reports that she has allen drinking plenty of water. Principal Diagnosis Diabetic ketoacidosis, new onset insulin-dependent diabetes Discharge Exam General-alert and oriented x3, no fevers, no chills. Obese HEENT-head atraumatic and normocephalic, pupils equal and reactive to light, extraocular muscles intact Neck-no lymphadenopathy or thyromegaly, trachea midline Chest-clear to auscultation percussion. No rales wheezing or rhonchi Cardiac-regular rate and rhythm, normal S1 and S2, no murmurs Abdomen-normal bowel sounds, nontender, no hepatosplenomegaly Extremities-no cyanosis, clubbing, or edema Neuro-cranial nerves II through XII intact, motor and sensory function within normal limits, strength symmetrical, no focal deficits Psych-normal affect, normal mood Discharge Data Allergies Allergy/AdvReac Type Severity Reaction Status Date / Time No Known Allergies Allergy Unverified 07/19/22 08:52 Consultations 07/19/22 11:26 ED Decision to Admit Stat Hospital Course (1) Diabetic keto-acidosis: Now resolved. She appears to have insulin-dependent type 2 diabetes at this time. She states diabetes does run in her family. school vocational educator has been consulted and she has been started on Lantus twice daily. Dosage grated today, July 21. (2) Acute dehydration: Resolved with IV fluid administration and glucose control (3) Acute hyponatremia: Due to hyperglycemia. Now resolved (4) Hypothyroid: Continue current thyroid replacement. TSH is elevated and dosage has been increased. Free t4 is in range. (5) PCOS (polycystic ovarian syndrome): Continue home meds (6) Obesity: given recent diabetes diagnosis, would recommend lifestyle modifications and weight loss (7) JOSÉ LUIS (acute kidney injury): Mild on admission. Resolved with IV fluids and glucose control Plan Discharge to home todayJuly 21 Total Time Total Time Spent Total Time Spent (In Minutes): 35 minutes Discharge Plan Discharge Items Patient Disposition: Home - Self-Care Reason For Visit: UNCONTROLLED DIABETES Discharge Diagnosis: Diabetic ketoacidosis, new diagnosis insulin-dependent type 2 diabetes Condition on Discharge: Fair Activity: Resume your previous activity Non-emergency contact: Primary Care Provider Call non-emergency contact if: you have any medication questions Follow-up/Referrals: Kanwal Cintron PA-C [Primary Care Provider] - Diet: Carb Consistent or DM2 Addtl Attending Provider Instructions: Lantus dosage is 30 units twice daily and should be taken before breakfast and before supper. 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 2.) Check blood sugar 2x/day- dose of insulin before breakfast and before suppertime. 3.) Please notify your provider of blood sugar levels frequently below 70. 4.) Diabetes Medications - Lantus- is a background/24 hour insulin that helps cover the sugar your body makes. Try to take your insulin at the same time every day. You do not need to take it with food. 5.) The informatics educator will call you in 2-3 days to review blood sugar lev els. Please record values to review. If you have any questions, please call our diabetes office at [phone]. Take Care!! Pending Studies at Discharge: No Stand-Alone Forms: My [facility] [employer], Smoking Cessation Medications and DC Order Prescriptions: New insulin glargine [Lantus Solostar U-100 Insulin] 100 unit/mL (3 mL) insulin pen 30 unit subcut BID Qty: 15 2RF Continued spironolactone 100 mg tablet 100 mg PO BID buspirone 30 mg tablet 30 mg PO BID levothyroxine 112 mcg tablet 112 mcg PO DAILY Discharge Orders: Discharge Order (Routine); Ordered 07/21/22 Ordered By: Joseluis Bailey Admission Data Admit Date/Time: 07/19/22 11:52 Attending Provider: Joseluis Bailey Admit Provider: Zen Gaston Primary Care Provider: Kanwal Cintron Other Providers: Zen Gaston Coding Level of Care Code D/C DAY MANAGEMENT >30 MINS Diagnoses Diabetic keto-acidosis E11.10 Acute dehydration E86.0 Acute hyponatremia E87.1 Hypothyroid E03.9 PCOS (polycystic ovarian syndrome) E28.2 Obesity E66.9 JOSÉ LUIS (acute kidney injury) N17.9
[2022-07-21] MEDS ORDERED: INSULIN ASPART PER UNIT SC STA (12:16)
[2022-07-21 13:20] VITALS: BP 131/82; PULSE 82
== END 2022-07-21 13:58 | disposition home or self-care (01) | DRG 638 ==
LOC: ED 08:41 → 3N 11:52 → SUATTDRO 11:52 → 3N 15:40